=== PATIENT | female | born 1935 | race Caucasian/White ===

== ENCOUNTER → 2024-10-10 | Outpatient (CLI) | payer MEDICARE ==
--- NOTE | 2024-10-10 16:46 | HMCIMG ---
LUMBAR SPINE 4+VWS HISTORY: Lumbar radiculopathy COMPARISON: None FINDINGS: 4 images of lumbar spine were obtained including the oblique views. Grade 1 anterolisthesis is seen at the L4-5 level. There is straightening of normal lordotic curvature which may be related to muscle spasm or positioning. Superior endplate compression fracture is seen involving L1 with 50% loss of height. Degenerative changes are seen. IMPRESSION: 1. L1 compression fracture with 50% loss of height.
--- NOTE | 2024-10-10 16:47 | HMCIMG ---
HIP UNILAT 2-3VW RIGHT HISTORY: Right hip pain COMPARISON: None TECHNIQUE: 3 images of right hip were obtained. FINDINGS: There is no acute displaced fracture or dislocation. Right hip joint space narrowing is seen. Degenerative changes are seen. IMPRESSION: 1. Findings as described above.
== END | disposition home or self-care (01) ==
LOC: RAH 14:34
PROVIDERS: ATTEND Internal Medicine
DX: S32.018A Other fracture of first lumbar vertebra, initial encounter for closed fracture (principal); M47.26 Other spondylosis with radiculopathy, lumbar region; M43.16 Spondylolisthesis, lumbar region; M16.11 Unilateral primary osteoarthritis, right hip; M25.851 Other specified joint disorders, right hip; M25.551 Pain in right hip; X58.XXXA Exposure to other specified factors, initial encounter; Y93.89 Activity, other specified; Y92.89 Other specified places as the place of occurrence of the external cause; Y99.8 Other external cause status
CPT/HCPCS: 72110; 73502